=== PATIENT | female | born 1965 | race Caucasian/White ===

== ENCOUNTER 2021-09-08 22:57 | Emergency (ER) | payer OTHER ==
[~2021-09-08] VITALS: Ht 154.9 cm; Wt 74.8 kg
[2021-09-08 23:07] VITALS: BP_SYST 162
--- NOTE | 2021-09-08 23:17 | NUR ---
Patient to ER bed 4 to gown for evaluation. Side rails up.
--- NOTE | 2021-09-08 23:20 | NUR ---
Patient BIB by family from home. C/O Left flank pain, x 1 day. Patient reported, had left flank pain since last night, chills, no fever. A/O,X4, left flank pain, pain rate 10/10.
--- NOTE | 2021-09-08 23:43 | NUR ---
ER Dr. Booker at bedside examining patient.
[2021-09-08 23:49] LABS: BILIRUBIN,URINE NEGATIVE (NEGATIVE); BLOOD, URINE NEGATIVE (NEGATIVE); CLARITY/URINE CLEAR (CLEAR); COLOR,URINE YELLOW (YELLOW); GLUCOSE,URINE NEGATIVE (NEGATIVE); KETONES,URINE NEGATIVE (NEGATIVE); LEUKOCYTE ESTERASE ,URINE NEGATIVE (NEGATIVE); NITRITE, URINE NEGATIVE (NEGATIVE); PH,URINE 5.5 (5.0-8.0); PROTEIN URINE NEGATIVE (NEGATIVE); UROBILINOGEN,URINE 0.2 (0.2-1.0)
[2021-09-09] MEDS ORDERED: KETOROLAC TROMETHAMINE 60 MG/2 ML VIAL IM ONE
[2021-09-09] MEDS ORDERED: MORPHINE 4 MG INJ. 4 MG/ML VIAL IM ONE
--- NOTE | 2021-09-09 00:02 | NUR ---
Blood for labwork drawn from clarity developer. Patient tolerated well.
[2021-09-09 00:20] LABS: HEMOGLOBIN 13.3 g/dL (12.0-16.0)
[2021-09-09 00:25] LABS: BASOPHILS % (AUTO) 0.5 % (0.0-2.0); EOSINOPHILS # (AUTO) 0.1 K/uL (0.0-0.4); EOSINOPHILS % (AUTO) 1.5 % (0.0-4.0); HEMATOCRIT 38.8 % (36-48); LYMPHOCYTES # (AUTO) 2.6 K/uL (1.0-5.5); LYMPHOCYTES % (AUTO) 32.7 % (20.5-51.5); MEAN CORPUSCULAR HEMOGLOBIN 31 pg (27-31); MEAN CORPUSCULAR HGB CONC 34 % (32-36); MEAN CORPUSCULAR VOLUME 90 fL (79.0-98.0); MONOCYTES # (AUTO) 0.7 K/uL (0.0-1.0); MONOCYTES % (AUTO) 8.1 % (1.7-9.3); NEUTROPHILS # (AUTO) 4.6 K/uL (1.8-7.7); NEUTROPHILS % (AUTO) 57.2 % (40.0-70.0); PLATELET COUNT (AUTO) 238 K/uL (130-430); RED CELL DISTRIBUTION WIDTH 13.4 % (9.0-15.0)
[2021-09-09 00:38] LABS: CALCIUM 9.2 mg/dL (8.4-11.0); CREATININE 0.7 mg/dL (0.55-1.30); POTASSIUM 3.6 mmol/L (3.5-5.1)
[2021-09-09 00:43] LABS: TOTAL BILIRUBIN 0.4 mg/dL (0.0-1.0)
--- NOTE | 2021-09-09 02:23 | NUR ---
Ultrasound at bedside.
[2021-09-09] MEDS ORDERED: CYCL10TA24 PO ×2 (03:04→03:05)
[2021-09-09] MEDS ORDERED: NAPR-1172 PO ×2 (03:04→03:05)
--- NOTE | 2021-09-09 03:15 | NUR ---
Patient given written and verbal discharge instructions and verbalizes understanding. ER MD discussed with patient the results and treatment provided. Patient in stable condition. ID arm band removed. Rx of flexeril,naprosyn given. Patient educated on pain management and to follow up with PMD. Pain Scale 3/10. Opportunity for questions provided and answered. Medication side effect fact sheet provided.
[2021-09-09 03:17] VITALS: BP_SYST 143
== END 2021-09-09 03:15 | disposition home or self-care (01) ==
LOC: SED 22:57
DX: R10.9 Unspecified abdominal pain (principal)
CPT/HCPCS: 36415; 80053; 81003; 81025; 83690; 85025; 93978; 96372; 99284; J1885; J2270